=== PATIENT | female | born 1990 | race Caucasian/White ===

== ENCOUNTER 2017-08-12 18:51 | Inpatient (IN) ==
[2017-08-12] MEDS ORDERED: 0.9 % Sodium Chloride 1,000 ML IVC ONE (18:56)
[2017-08-12] MEDS ORDERED: *HR* Morphine 2 MG/ML SYRINGE IVP ONE (18:56)
[2017-08-12] MEDS ORDERED: *HR* Promethazine 25 MG/ML VIAL IVP ONE (18:56)
--- NOTE | 2017-08-12 19:01 | Emergency Department Note ---
Disposition Clinical Impression: Pyelonephritis Disposition: Admitted As Inpatient Condition: Good Referrals: Wendi Escobedo PATTERN FILER [Primary Care Provider] - Forms: ED Satisfaction Letter, Work/School Release Abdominal Pain HPI - General Chief Complaint: ED Abdominal Pain Stated Complaint: ABD PAIN Time Seen by Provider: 08/12/17 18:55 Source: patient Mode of arrival: EMS Limitations: no limitations Nursing Notes Reviewed: Yes Vital Signs Reviewed: Yes - History of Present Illness HPI Narrative: 27-year-old female presents to the ER with a chief complaint of right flank pain , nausea and vomiting. Patient started having symptoms day before yesterday with right flank pain. She was actually seen here yesterday where she had labs consistent with pyelonephritis. She had a white count of that time at 18. CT scan demonstrated ureteral dilation with a likely recently passed stone. Her pain was under control and she was not having any emesis so she was discharged. She reports that throughout the night and today she has had vomiting at home despite Zofran. She has been unable to keep down her Cipro. She went back to the urgent care today who transferred here for evaluation. She reports fevers at home up to 101. She took Advil roughly 2 hours ago. No other complaints. Pt Subjective Complaint: flank pain Onset (ago): day(s) Consistency: constant Location: R flank Quality: sharp Radiation: none Migration to: no migration Improves with: nothing Worsens with: nothing Associated symptoms: Reports: nausea, vomiting, fever, dysuria. Denies: diarrhea Treatments prior to arrival: none - Related Data Previous Rx's Medication Instructions Recorded Naproxen [Naprosyn] 500 mg PO BID #14 tablet 12/04/16 Ondansetron ODT [Zofran ODT] 4 mg SL Q6HR PRN #14 tab.rapdis 08/11/17 levoFLOXacin [Levaquin] 750 mg PO DAILY #5 tablet 08/11/17 Allergies Allergy/AdvReac Type Severity Reaction Status Date / Time acetaminophen [From Tylenol] Allergy Hives Verified 08/11/17 12:56 Amoxicillin Allergy Hives Verified 08/11/17 12:56 metronidazole [From Flagyl] Allergy Hives Verified 08/11/17 12:56 nitrofurantoin Allergy Swelling Verified 08/11/17 12:56 [From Macrobid] of Lip/Tongue/Throat Penicillins [PCN] Allergy Hives Verified 08/11/17 12:56 sulfamethoxazole Allergy Hives Verified 08/11/17 12:56 [From Bactrim] trimethoprim [From Bactrim] Allergy Hives Verified 08/11/17 12:56 All systems ED: reviewed and negative except as stated. Constitutional: Reports: fever Gastrointestinal: Reports: abdominal pain, nausea, vomiting. Denies: diarrhea Genitourinary: Reports: dysuria. 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 Psychiatric history: Reports: PTSD - Social History Smoking status: Current every day smoker Alcohol use: Reports: rarely Drug use: Reports: none Physical Exam - General Limitations: no limitations General appearance: alert, anxious - Head Head exam: atraumatic, normocephalic - Eye Eye exam: Present: normal appearance - ENT ENT exam: normal exam - Neck Neck exam: Present: normal inspection - Chest Chest inspection: Present: normal inspection, symmetric chest wall rise - Respiratory Respiratory exam: Present: normal lung sounds bilaterally - Cardiovascular Cardiovascular exam: Present: normal rhythm, tachycardia, normal heart sounds - Abdominal Exam Abdominal exam: Present: soft, tenderness (Moderate right flank tenderness). Absent: distention, guarding, rigidity - Extremities Exam Extremities exam: Present: normal inspection, full ROM - Expanded Upper Extremity Exam Shoulder exam: Present: normal inspection, full ROM Arm exam: Present: normal inspection, full ROM Elbow exam: Present: normal inspection, full ROM Forearm/Wrist exam: Present: normal inspection, full ROM Hand exam: Present: normal inspection, full ROM - Expanded Lower Extremity Exam Hip/Pelvis exam: Present: normal inspection, full ROM Upper leg exam: Present: normal inspection, full ROM Knee exam: Present: normal inspection, full ROM Lower leg exam: Present: normal inspection, full ROM Ankle exam: Present: normal inspection, full ROM Foot/toe exam: Present: normal inspection, full ROM - Psychiatric Psychiatric exam: Present: anxious - Skin Skin exam: Present: warm, dry, intact Course Course Narrative: Patient seen and examined. Reviewed prior visit. We will repeat baseline labs as well as urinalysis. Patient given IV fluids, Zofran and morphine. Vital Signs Temperature 98.1 F 08/12/17 18:55 Pulse Rate 93 08/12/17 18:55 Respiratory Rate 18 01/07/18 18:55 Blood Pressure 110/68 08/12/17 18:55 O2 Sat by Pulse Oximetry 100 08/12/17 18:55 Temperature 98.1 F 08/12/17 18:55 Pulse Rate 99 08/12/17 19:13 Respiratory Rate 16 08/12/17 19:13 Blood Pressure 103/64 08/12/17 19:13 O2 Sat by Pulse Oximetry 99 08/12/17 19:13 Oxygen Delivery Oxygen Delivery Room Air Abdominal Pain - MDM Narrative Medical decision making narrative: 27-year-old female presents to the ER due to right flank pain. Previously seen here yesterday with CT scan showing likely passed ureterolithiasis. Urinalysis demonstrated a UTI as well as leukocytosis of 18. She was sent home with Zofran and Cipro. Has been vomiting over the last 24 hours. Unable to keep her medications at home. She continues to appear dry here with continued right flank pain. Continues to demonstrate leukocytosis. Patient admitted for intractable nausea and vomiting, pyelonephritis to the hospitalist service. - Medical Records Medical records reviewed: Yes I reviewed the patient's medical records. - Lab Data Lab results reviewed: Yes I reviewed the patient's lab results. Result diagrams: 08/12/17 19:22 08/12/17 19:22 Lab Results 08/12/17 08/12/17 Range/Units 19:22 19:22 WBC 17.2 H (4.3-11.1) K/mcL RBC 4.13 (3.82-4.97) M/mcL Hgb 12.6 D (11.5-15.4) g/dL Hct 38.5 (35.3-44.9) % MCV 93.2 (83.0-100.0) fL MCH 30.5 (28.0-33.3) pg MCHC 32.7 (31.6-35.5) g/dL RDW 14.1 (11.5-14.5) % Plt Count 189 (140-400) K/mcL MPV 9.9 (9.4-12.4) fL Immature Gran % 0.4 (0-4) % Seg Neutrophils % 85.2 % Lymphocytes % 6.5 % Monocytes % 7.5 % Eosinophils % 0.1 % Basophils % 0.3 % Neutrophils # 14.6 H (1.6-8.9) K/mcL Lymphocytes # 1.1 (0.6-4.6) K/mcL Monocytes # 1.3 (0.0-1.3) K/mcL Eosinophils # 0.0 (0.0-0.6) K/mcL Basophils # 0.1 (0.0-0.2) K/mcL Immature Plt Fraction 3.2 (1.1-6.1) % Sodium 137 (136-145) mEq/L Potassium 3.7 (3.5-5.1) mEq/L Chloride 109 H (98-107) mEq/L Carbon Dioxide 17 L (23-29) mEq/L BUN 13 (6-20) mg/dL Creatinine 0.66 (0.60-1.20) mg/dL Est GFR ( Amer) > 60 (> 60) Est GFR (Non-Af Amer) > 60 (> 60) BUN/Creatinine Ratio 20 (6-26) Glucose 71 (70-105) mg/dL Calculated Osmolality 283 (280-300) Calcium 9.5 (8.6-10.3) mg/dL Total Bilirubin 1.8 H (0.3-1.0) mg/dL Direct Bilirubin 0.3 H (0.0-0.2) mg/dL Indirect Bilirubin 1.5 H (0.0-1.2) mg/dL AST 11 L (13-39) Units/L ALT 9 (7-52) Units/L Alkaline Phosphatase 62 (34-104) Units/L Serum Total Protein 6.5 (6.4-8.9) g/dL Albumin 3.9 (3.5-5.7) g/dL Globulin 2.6 (2.4-3.5) g/dL Albumin/Globulin Ratio 1.5 (1.1-2.2) Lipase < 3 L (11-82) Units/L S.B.A.R. - S.B.A.R. Situation: Demographics, MOA Background: Presenting Complaint, Relevant PMH, Meds, & Allergies Assessment: Vital Signs, Course and respsone to treatment, Exam Concerns, Patient/Family Expectation, Pertinant Lab Results Recommendation: Barrier(s) to disposition, Recommendation based on pending studies, treatments, or consults S.B.A.R. Report Given to: Dr. Lucía Eric Repor Time: 20:02
[2017-08-12] MEDS ORDERED: Levofloxacin 750 MG/150 ML 750 MG/150 ML BAG IVPB ONE (19:21)
--- NOTE | 2017-08-12 19:28 | Emergency Department Note ---
START Narrative - START START: I examined this patient and my medical decision-making was reviewed with the Resident Physician. I agree with the documented findings, disposition and treatment plan as described except to the extent set forth below. 27-year-old female presents emergency room for pyelonephritis. Patient was seen yesterday for the same complaint. She was doing well yesterday and wanted to go home. She has failed outpatient therapy with nausea vomiting and unable to keep any food or drink down. She had a CT scan yesterday that showed a recently passed stone most likely involving the right ureter. We have placed her on IV Levaquin. She is receiving IV fluids. We will recheck some labwork. Patient will need to be admitted.
[2017-08-12 19:38] LABS: Basophils # 0.1 K/mcL (0.0-0.2); Basophils % 0.3 %; Eosinophils % 0.1 %; Hematocrit 38.5 % (35.3-44.9); Hemoglobin 12.6 g/dL (11.5-15.4); Immature Granulocytes % 0.4 % (0-4); Immature Platelets 3.2 % (1.1-6.1); Lymphocytes # 1.1 K/mcL (0.6-4.6); Lymphocytes % 6.5 %; Mean Corpuscular HGB Conc 32.7 g/dL (31.6-35.5); Mean Corpuscular Hemoglobin 30.5 pg (28.0-33.3); Mean Corpuscular Volume 93.2 fL (83.0-100.0); Mean Platelet Volume 9.9 fL (9.4-12.4); Monocytes # 1.3 K/mcL (0.0-1.3); Monocytes % 7.5 %; Neutrophils # 14.6 K/mcL (1.6-8.9); Platelet Count 189 K/mcL (140-400); Red Blood Count 4.13 M/mcL (3.82-4.97); Red Cell Distribution Width 14.1 % (11.5-14.5); Segmented Neutrophils % 85.2 %
[2017-08-12 19:54] LABS: Alanine Aminotransferase 9 Units/L (7-52); Albumin 3.9 g/dL (3.5-5.7); Albumin/Globulin Ratio 1.5 (1.1-2.2); Alkaline Phosphatase 62 Units/L (34-104); Aspartate Amino Transferase 11 Units/L (13-39); BUN/Creatinine Ratio 20 (6-26); Bilirubin,Direct 0.3 mg/dL (0.0-0.2); Bilirubin,Indirect 1.5 mg/dL (0.0-1.2); Bilirubin,Total 1.8 mg/dL (0.3-1.0); Blood Urea Nitrogen 13 mg/dL (6-20); Calcium 9.5 mg/dL (8.6-10.3); Carbon Dioxide 17 mEq/L (23-29); Chloride 109 mEq/L (98-107); Globulin 2.6 g/dL (2.4-3.5); Glucose 71 mg/dL (70-105); Lipase < 3 Units/L (11-82); Osmolality,Calculated 283 (280-300); Potassium 3.7 mEq/L (3.5-5.1); Sodium 137 mEq/L (136-145); Total Protein 6.5 g/dL (6.4-8.9); eGFR For African Americans > 60 (> 60); eGFR For Non-African Americans > 60 (> 60)
[2017-08-12 20:34] LABS: Bilirubin,Urine Negative (Negative); Blood,Urine Trace (Negative); Clarity,Urine Clear (Clear); Color,Urine Yellow (Yellow); Glucose,Urine (UA) Normal (Normal); Ketones,Urine 80 mg/dL (Negative); Leukocyte Esterase,Urine Small (Negative); Nitrite,Urine Negative (Negative); PH,Urine 5.5 pH Units (5.0-8.0); Protein,Urine 30 mg/dL (Neg-Trace); Specific Gravity,Urine 1.015 (1.010-1.025); Urobilinogen,Urine Normal (Normal)
[2017-08-12 20:36] LABS: Bacteria,Urine Few per hpf (None-Few); Hyaline Casts,Urine None Seen per lpf (None-Few); RBC,Urine 0-3 per hpf (0-3); Squamous Epithelial Cell,Urine Many per lpf (None-Few); WBC,Urine 30-50 per hpf (0-3)
[2017-08-12] MEDS ORDERED: 0.9 % Sodium Chloride 1,000 ML IVC SCH (21:00)
[2017-08-12] MEDS ORDERED: Naloxone 0.4 MG/ML INJ IVP PRN (21:01)
--- NOTE | 2017-08-12 21:33 | Internal Med History&Physical ---
Date of Encounter: 08/12/17 Time of Encounter: 21:28 Assessment and Plan (1) Pyelonephritis Current visit: Yes Status: Acute For the past 2 days patient has been experiencing right flank pain as well as nausea vomiting and temperature urinalysis indicative of UTI she has a white count 17 CT abdomen and pelvis shows nonobstructive renal calculi bilaterally Minimal dilation of the right renal pelvis and proximal ureter. He was seen in ER yesterday was treated and sent home with oral medications however she was unable to tolerate better overnight and continued to vomit. We will initiate IV fluids We will give Levaquin IV-previous urine culture show Escherichia coli which was sensitive to Levaquin We will give morphine for pain Zofran for nausea Clear liquid diets and advance his diet tolerated (2) Dehydration Current visit: Yes Status: Acute IV fluids overnight monitor electrolytes and replace as needed (3) Malnutrition Current visit: Yes Status: Acute patient is very malnourished states she does not has and appetite, she has pyelonephritis and she has been experiencing nausea and vomiting for past 2 days unable to eat or drink we will consult dietitian for nutritional supplement Qualifiers: Malnutrition type: protein-calorie malnutrition Protein-calorie malnutrition severity: moderate Qualified Code(s): E44.0 - Moderate protein- calorie malnutrition (4) Tobacco abuse Current visit: No Status: Chronic Encouraged patient to stop smoking-[place] nicotine patch patient declined (5) PTSD (post-traumatic stress disorder) Current visit: No Status: Chronic 1 Ativan as needed for anxiety (6) DVT prophylaxis Current visit: Yes Status: Chronic 1 heparin subcutaneous Internal Medicine - H&P: HPI Chief complaint: n/v BACK PAIN Admitted From: Emergency Dept Plans for Post Hospital Care: Home History of present illness: Ms. Bill is a 27 year old female past history of anxiety depression PTSD current smoker. According to the patient she began to experience right flank pain 2 days ago. She denies any difficulty urinating hematuria she has had some nausea and vomiting. She was seen in the emergency department yesterday labs consistent with pyelonephritis she had elevated white count CT scan did demonstrate ureteral dilatation with a likely recently passed stone. She was doing well in the ER and was not vomiting and she was discharged home on Zofran and Levaquin. However last night she began to vomit despite the use of Zofran. She was unable to take her medication. She does admit to fevers at home up to 101 she has been taking Advil for fever. She went to urgent care today who transferred her to the ER. Lab work did reveal elevated white count she is afebrile rest of lab work was unremarkable. She was given IV fluids antibiotics anti-emetics and has been admitted for further workup evaluation. Presently the patient continues to complain of some nausea and right lower back pain. She is hemodynamically stable at this time I did review this case with Dr. Lucía skinner. Past Med Surg Social Fam HX - Past Medical History Medical history: no medical history Psychiatric history: anxiety, depression, panic disorder, PTSD - Past Surgical History Surgical History: other (Excision of a cyst from the neck.) - Social History Smoking Status: Current every day smoker Packs per day: 0.5 Smokeless Tobacco Status: No Alcohol use: rarely Drug use: marijuana - Family History Mother Living Status: Still Living Hx Family Cardiac Disorders: Yes (High cholesterol) Internal Medicine - H&P: Meds Naproxen [Naprosyn] 500 mg PO BID #14 tablet 12/04/16 [Rx] Ondansetron ODT [Zofran ODT] 4 mg SL Q6HR PRN #14 tab.rapdis 08/11/17 [Rx] levoFLOXacin [Levaquin] 750 mg PO DAILY #5 tablet 08/11/17 [Rx] 3 Allergy/AdvReac Type Severity Reaction Status Date / Time acetaminophen [From Tylenol] Allergy Hives Verified 08/11/17 12:56 Amoxicillin Allergy Hives Verified 08/11/17 12:56 metronidazole [From Flagyl] Allergy Hives Verified 08/11/17 12:56 nitrofurantoin Allergy Swelling Verified 08/11/17 12:56 [From Macrobid] of Lip/Tongue/Throat Penicillins [PCN] Allergy Hives Verified 08/11/17 12:56 sulfamethoxazole Allergy Hives Verified 08/11/17 12:56 [From Bactrim] trimethoprim [From Bactrim] Allergy Hives Verified 08/11/17 12:56 All Systems PM: A 10-system review of systems was performed and is negative for pertinent findings except as documented above in the HPI. - Constitutional Constitutional: anorexia, fever(s), no chills, no night sweats - EENT Eyes: no change in vision, no discharge, no pain, no photophobia Nose, mouth and throat: no dysphagia, no nasal discharge, no neck pain, no sore throat - Cardiovascular Cardiovascular ROS IM: no chest pain, no diaphoresis, no dyspnea, no lightheadedness, no palpitations, no syncope - Respiratory Respiratory: no cough, no dyspnea, no wheezing, no excessive phlegm production - Gastrointestinal Gastrointestinal: nausea, vomiting - Genitourinary Genitourinary: flank pain, no change in urinary stream, no dysuria, no hematuria - Musculoskeletal Musculoskeletal ROS IM: back pain, no numbness, no tingling - Integumentary Integumentary IM: no rash, no unusual bruising - Neurological Neurological ROS: no confusion, no convulsions, no focal weakness, no numbness, no tingling, no tremor(s) - Psychiatric Psychiatric: anxiety - Hematologic/Lymphatic Hematologic/Lymphatic: no easy bruising - Constitutional Vitals: Temp Pulse Resp BP Pulse Ox 98.0 F 70 16 94/60 99 08/12/17 20:59 08/12/17 20:59 08/12/17 20:59 08/12/17 20:59 08/12/17 20:59 General appearance: Present: A&O X 3, underweight - Head Head exam: Present: atraumatic, normocephalic - Eye Eye exam: Present: PERRL, conjuntiva pink, sclera anicteric Pupils: Present: PERRL - Neck Neck exam general surgery: Present: supple, trachea midline. Absent: lymphadenopathy - Respiratory Respiratory exam: Present: CTAB. Absent: accessory muscle use, rales, rhonchi, wheezes - Cardiovascular Cardiovascular exam: Present: RRR, +S1, +S2. Absent: diastolic murmur, gallop, rubs, systolic murmur - GI/Abdominal GI/Abdominal exam: Present: normal bowel sounds, soft, no peritoneal signs. Absent: distended, tenderness - Extremities Exam Extremities exam: Present: warm, radial pulses palpable and symmetrical. Absent : calf tenderness, cyanotic, pedal edema - Back Exam Back exam: Present: CVA tenderness (R) - Neurological Exam Neurological exam: Present: CN II-XII intact, oriented X3, no focal deficits. Absent: pronater drift, facial droop, speech deficit - Skin Skin exam: Present: dry, intact Internal Med - H&P Results - Labs CBC & Chem 7: 08/12/17 19:22 08/12/17 19:22 Labs: Urine 08/12/17 Range/Units 20:24 Urine Color Yellow (Yellow) Urine Clarity Clear (Clear) Urine pH 5.5 (5.0-8.0) pH Units Ur Specific [place] 1.015 (1.010-1.025) Urine Protein 30 H (Neg-Trace) mg/dL Urine Glucose (UA) Normal (Normal) mg/dL - Diagnostic Studies Other Images Additional comments: CT of Abd CT/CT abd pelvis wo no iv no oral IMPRESSION: 1. Minimal dilation of the right renal pelvis and proximal ureter, without visible obstructing calculus. Findings could be physiologic versus related to a recently passed stone. 2. Punctate nonobstructive renal calculi bilaterally.
[2017-08-12] MEDS ORDERED: *HR* LORazepam 2 MG/ML VIAL IVP PRN (21:40)
--- NOTE | 2017-08-12 21:41 | Event Note ---
Date of Encounter: 08/12/17 Time of Encounter: 21:39 1. Sepsis secondary to right acute pyelonephritis Continue Levaquin, urine culture, patient says that she provided a sample at [facility], we will try to contact his facility to obtain the result in the morning IV fluids, morphine as needed 2. Dehydration secondary to intractable nausea and vomiting from acute pyelonephritis 3. PTSD, and Ativan low dose as needed 4. History of endometriosis, follow up as an outpatient 5. Tobacco use, smoking cessation counseling, patient uses marijuana at times as well 6. History of cysts removed from her ovaries and throat 7. Severe Malnutrition, nutrition consult Patient will be admitted as inpatient, expected stay more than 2 midnights. Full code. Time spent on this admission 40 minutes H&P will be completed by Octavia Meyer NP
[2017-08-12] MEDS: *HR* Morphine 2 MG/ML SYRINGE IVP PRN (22:17)
[2017-08-12] MEDS: 0.9 % Sodium Chloride 1,000 ML IVC SCH (22:17)
[2017-08-13] MEDS: Melatonin 3 MG TABLET PO PRN (01:22)
[2017-08-13] MEDS: *HR* Morphine 2 MG/ML SYRINGE IVP PRN ×4 (03:33→21:38)
[2017-08-13] MEDS: 0.9 % Sodium Chloride 1,000 ML IVC SCH ×4 (04:10→23:20)
[2017-08-13] MEDS: *HR* Promethazine 25 MG/ML VIAL IVP PRN ×2 (04:50→10:38)
[2017-08-13 04:51] LABS: Basophils % 0.3 %; Eosinophils # 0.1 K/mcL (0.0-0.6); Eosinophils % 0.8 %; Hematocrit 34.9 % (35.3-44.9); Hemoglobin 11.3 g/dL (11.5-15.4); Immature Granulocytes % 0.3 % (0-4); Lymphocytes # 1.5 K/mcL (0.6-4.6); Lymphocytes % 11.3 %; Mean Corpuscular HGB Conc 32.4 g/dL (31.6-35.5); Mean Corpuscular Hemoglobin 30.3 pg (28.0-33.3); Mean Corpuscular Volume 93.6 fL (83.0-100.0); Mean Platelet Volume 10.6 fL (9.4-12.4); Monocytes # 1.3 K/mcL (0.0-1.3); Neutrophils # 10.1 K/mcL (1.6-8.9); Platelet Count 147 K/mcL (140-400); Red Blood Count 3.73 M/mcL (3.82-4.97); Red Cell Distribution Width 14.2 % (11.5-14.5); Segmented Neutrophils % 77.3 %
[2017-08-13 04:54] LABS: BUN/Creatinine Ratio 20 (6-26); Blood Urea Nitrogen 12 mg/dL (6-20); Calcium 8.7 mg/dL (8.6-10.3); Carbon Dioxide 20 mEq/L (23-29); Chloride 113 mEq/L (98-107); Glucose 71 mg/dL (70-105); Magnesium 1.5 mg/dL (1.6-2.6); Osmolality,Calculated 282 (280-300); Potassium 3.9 mEq/L (3.5-5.1); Sodium 137 mEq/L (136-145); eGFR For African Americans > 60 (> 60); eGFR For Non-African Americans > 60 (> 60)
[2017-08-13] MEDS: *HR* Heparin 5,000 UNIT/ML VIAL SQ SCH ×2 (06:21→18:36)
[2017-08-13] MEDS: Levofloxacin 750 MG/150 ML 750 MG/150 ML BAG IVPB SCH (09:31)
[2017-08-13] MEDS: Pantoprazole 40 MG VIAL IVP SCH (09:33)
--- NOTE | 2017-08-13 14:14 | Internal Med Progress Note ---
Date of Encounter: 08/13/17 Time of Encounter: 07:30 - Assessment and plan (1) Pyelonephritis Current Visit: Yes Status: Acute Assessment and plan: Continue with IV Levaquin. Follow up on cultures. Continue with IV fluids. Advance diet to full liquid (2) Tobacco abuse Current Visit: No Status: Chronic Assessment and plan: Counseled (3) DVT prophylaxis Current Visit: Yes Status: Chronic Assessment and plan: Heparin subcutaneous - Subjective Interval history: No acute events. The patient was admitted with acute pyelonephritis. She seems to be doing well this morning. Says her pain in the back is much better controlled. She still feels nauseous but was able to tolerate clears and was asking for more food. She has been afebrile. - Constitutional Vitals: Temp Pulse Resp BP Pulse Ox 98.7 F 69 16 97/60 99 08/13/17 11:35 08/13/17 11:35 08/13/17 11:35 08/13/17 11:35 08/13/17 11:35 General appearance: Present: A&O X 3, underweight Exam: GEN: NAD CVS: RRR. S1, S2, No m/r/g RESP: CTAB ABD: Soft, NT, ND, +BS EXT: No edema. 2+ DP. No rashes NEURO: Nonfocal Internal Medicine: Result - Labs CBC & Chem 7: 08/13/17 04:10 08/13/17 04:10 Labs: Short CBC 08/13/17 Range/Units 04:10 WBC 13.1 H (4.3-11.1) K/mcL Hgb 11.3 L (11.5-15.4) g/dL Hct 34.9 L (35.3-44.9) % Plt Count 147 (140-400) K/mcL Neutrophils # 10.1 H (1.6-8.9) K/mcL BMP 08/13/17 04:10 Sodium 137 Potassium 3.9 Chloride 113 H Carbon Dioxide 20 L BUN 12 Creatinine 0.59 L Glucose 71 Calcium 8.7 Consult Discharge Plan - Plan Referrals: Wendi Escobedo, DATA CAPTURE CLERK [Primary Care Provider] -
[2017-08-13] MEDS ORDERED: Acetaminophen 325 MG TABLET PO PRN (16:55)
[2017-08-13] MEDS: Ibuprofen 400 MG TABLET PO PRN (18:35)
[2017-08-14] MEDS: *HR* Promethazine 25 MG/ML VIAL IVP PRN (01:55)
[2017-08-14] MEDS: Melatonin 3 MG TABLET PO PRN (02:03)
[2017-08-14] MEDS: *HR* Heparin 5,000 UNIT/ML VIAL SQ SCH (06:11)
[2017-08-14] MEDS ORDERED: Metoclopramide 10 MG/2 ML VIAL IVP ONE (06:41)
[2017-08-14 07:44] LABS: Basophils % 0.4 %; Eosinophils % 0.1 %; Hematocrit 36.8 % (35.3-44.9); Hemoglobin 12.2 g/dL (11.5-15.4); Immature Granulocytes % 0.2 % (0-4); Lymphocytes # 0.6 K/mcL (0.6-4.6); Lymphocytes % 7.1 %; Mean Corpuscular HGB Conc 33.2 g/dL (31.6-35.5); Mean Corpuscular Hemoglobin 30.2 pg (28.0-33.3); Mean Corpuscular Volume 91.1 fL (83.0-100.0); Mean Platelet Volume 10.3 fL (9.4-12.4); Monocytes # 0.5 K/mcL (0.0-1.3); Monocytes % 6.7 %; Neutrophils # 6.8 K/mcL (1.6-8.9); Platelet Count 141 K/mcL (140-400); Red Blood Count 4.04 M/mcL (3.82-4.97); Red Cell Distribution Width 13.6 % (11.5-14.5); Segmented Neutrophils % 85.5 %
[2017-08-14 07:52] LABS: BUN/Creatinine Ratio 9 (6-26); Blood Urea Nitrogen 5 mg/dL (6-20); Calcium 9.2 mg/dL (8.6-10.3); Carbon Dioxide 21 mEq/L (23-29); Chloride 110 mEq/L (98-107); Glucose 132 mg/dL (70-105); Magnesium 1.5 mg/dL (1.6-2.6); Osmolality,Calculated 283 (280-300); Potassium 3.3 mEq/L (3.5-5.1); Sodium 137 mEq/L (136-145); eGFR For African Americans > 60 (> 60); eGFR For Non-African Americans > 60 (> 60)
[2017-08-14] MEDS: Pantoprazole 40 MG VIAL IVP SCH (07:57)
[2017-08-14] MEDS: 0.9 % Sodium Chloride 1,000 ML IVC SCH (07:57)
[2017-08-14] MEDS: Levofloxacin 750 MG/150 ML 750 MG/150 ML BAG IVPB SCH (07:58)
--- NOTE | 2017-08-14 10:48 | Discharge Summary ---
Date of Encounter: 08/14/17 Time of Encounter: 10:46 - Discharge Diagnosis (1) Pyelonephritis Priority: Primary Status: Acute (2) Tobacco abuse Priority: Secondary Status: Chronic - Discharge Medications Prescriptions: Ondansetron ODT [Zofran ODT] 4 mg SL Q6HR PRN #20 tab.rapdis PRN Reason: Nausea And Vomiting levoFLOXacin [Levaquin] 750 mg PO DAILY #12 tablet Home Medications: Naproxen [Naprosyn] 500 mg PO BID #14 tablet 12/04/16 [Rx] Ondansetron ODT [Zofran ODT] 4 mg SL Q6HR PRN #20 tab.rapdis 08/14/17 [Rx] levoFLOXacin [Levaquin] 750 mg PO DAILY #12 tablet 08/14/17 [Rx] Allergies/Adverse Reactions: 3 Allergy/AdvReac Type Severity Reaction Status Date / Time acetaminophen [From Tylenol] Allergy Hives Verified 08/11/17 12:56 Amoxicillin Allergy Hives Verified 08/11/17 12:56 metronidazole [From Flagyl] Allergy Hives Verified 08/11/17 12:56 nitrofurantoin Allergy Swelling Verified 08/11/17 12:56 [From Macrobid] of Lip/Tongue/Throat Penicillins [PCN] Allergy Hives Verified 08/11/17 12:56 sulfamethoxazole Allergy Hives Verified 08/11/17 12:56 [From Bactrim] trimethoprim [From Bactrim] Allergy Hives Verified 08/11/17 12:56 Date of admission: 08/12/17 20:58 Primary care physician: Wendi Escobedo CNP Consults: 08/12/17 21:41 consult to training mgr [Consult to Nutrition] [CONS] Routine Comment: Consulting Provider: NUTRITION Reason for Dietary Consult: PO Supplementation - Patient Status Disposition: Home, Self-Care Condition: Fair Overall status at discharge: patient is progressing back to baseline - Discharge Instructions Follow Up With: Wendi Escobedo CNP [Primary Care Provider] - - Diet and Activity Activity: resume usual activities as tolerated Diet: advance to your usual diet, regular diet Hospital course: Ms. Bill is a 27 year old female past history of anxiety depression PTSD current smoker. According to the patient she began to experience right flank pain 2 days ago prior to this admission. She was seen in the emergency department day prior to this admission. work up showed elevated white count and CT scan did demonstrate ureteral dilatation with a likely recently passed stone. She was doing well in the ER and was not vomiting and she was discharged home on Zofran and Levaquin. However, at home she couldnt tolerate PO and came back to the ED and was admitted to the hospitalist service. She was put on IV Levaquin and IV zofran. She did well and tolerated diet as we advanced it. She felt well enough to tolerate PO abx at discharge. She was discharged 08/14/2017. Her urine cultures grew E. Coli that was pansensitive. She will need to finish 14 days of abx. - Time Spent with Patient Total time spent providing and/or coordinating discharge services: - Constitutional Vitals: Temp Pulse Resp BP Pulse Ox 99.2 F 70 16 91/58 100 08/14/17 04:18 08/14/17 04:18 08/14/17 04:18 08/14/17 04:18 08/14/17 04:18 General appearance: Present: A&O X 3, underweight Exam: GEN: NAD CVS: RRR. S1, S2, No m/r/g RESP: CTAB ABD: Soft, NT, ND, +BS EXT: No edema. 2+ DP. No rashes NEURO: Nonfocal
[2017-08-14 11:27] VITALS: BP 95/58
[2017-08-14] MEDS: Ibuprofen 400 MG TABLET PO PRN (13:02)
== END 2017-08-14 16:43 | disposition home or self-care (01) | DRG 463 ==
LOC: 1NENUPED 18:51 → EMEROO 18:51 → 1NENUPED 20:20
PROVIDERS: ADMIT Internal Medicine; ATTEND Internal Medicine